=== PATIENT | female | born 1955 | race Caucasian/White ===

== ENCOUNTER → 2021-04-28 | Outpatient (CLI) | payer MEDICARE, OTHER ==
[~2021-04-28] MED LIST: CALCIUM600 MG PO; COLAZAL 750 MG750 MG PO; FOSAMAX70 MG PO; NORCO 5-325 TA1 EACH PO; PRAVACHOL40 MG PO; SINGULAIR10 MG PO; VITAMIN D32000 UNI1 PO
== END ==
LOC: MAMO 11:30
DX: Z12.31 Encounter for screening mammogram for malignant neoplasm of breast (principal)
CPT/HCPCS: 77063; 77067

== ENCOUNTER → 2021-07-26 | Outpatient (CLI) | payer MEDICARE, OTHER ==
[2021-07-26 12:51] LABS: BUN/CREATININE RATIO 19 (0-10)
== END ==
LOC: CT 12:00
PROVIDERS: Surgery
DX: C20 Malignant neoplasm of rectum (principal); N28.9 Disorder of kidney and ureter, unspecified
CPT/HCPCS: 36415; 71260; 80053; Q9967